=== PATIENT | female | born 1985 | race Caucasian/White ===

== ENCOUNTER 2019-05-17 14:43 | Observation (INO) | payer BC, SELFPAY ==
--- NOTE | ~2019-05-17 | US_ITS ---
EXAMINATION: US OB BPP wo non-stress DATE: 05/17/2019 15:29 INDICATION: Abnormal biophysical profile and the office, third trimester TECHNIQUE: Real-time pelvic ultrasound was performed. The interpreting radiologist was not present fo r the study. COMPARISON: None. FINDINGS: There is a single living fetus in vertex presentation. The placenta is fundal. heart rate is 15 7 beats per minute (bpm). The amniotic fluid index is 18.3 cm which is normal. Biophysical profile performed by the technologist: breathing (30 sec sustained breathing in 30 minutes): 2 out of 2 movement (3 gross body movements in 30 minutes): 2 out of 2 tone (one episode of wpqjgpe-bamsjxqka-qurqxsb limb movement): 2 out of 2 Amniotic fluid pocket (2 cm): 2 out of 2 Total score: 8 out of 8 IMPRESSION: 1. Single living fetus in vertex presentation. 2. Biophysical profile 8 out of 8. 3. Normal amniotic fluid index. Reviewed, dictated and finalized at location [facility] [employer]
[2019-05-17 15:07] VITALS: BP 133/79; PULSE 72
[2019-05-17 15:54] VITALS: BMI 35.4
--- NOTE | 2019-05-17 16:46 | OBADM ---
This patient, Ashely Haas, admitted to the OB room [facility] for observation. Patient/family oriented to hospital policies and general routines including ID bracelet, bed and alarms, visiting hours, pain management, procedures, bathroom and other care routines, personal items, smoking policy, room service/diet, and visiting hours. Patient/Family are encouraged to report perceived risks to care and to ask questions if they do not understand what they are told or what they should do.
--- NOTE | 2019-05-17 16:46 | PC.NURSE ---
Pt was sent over from office for extended monitoring due to 6/10 BPP in the office.
--- NOTE | 2019-07-31 21:12 | PM.OBTRLD ---
OB - Triage/Final Diagnosis Visit Information Date of evaluation: 06/24/19 Final Diagnosis (1) Non-reassuring electronic monitoring tracing: Code(s): O36.8390 - Maternal care for abnormalities of the heart rate or rhythm, unspecified trimester, not applicable or unspecified Status: Acute
== END 2019-05-17 16:27 | disposition home or self-care (01) ==
PROVIDERS: Admitting Provider Obstetrics & Gynecology; Visit Provider Obstetrics & Gynecology
DX: O36.8330 Maternal care for abnormalities of the fetal heart rate or rhythm, third trimester, not applicable or unspecified (principal); Z3A.37 37 weeks gestation of pregnancy
CPT/HCPCS: 76819; G0378; G0379